=== PATIENT | female | born 1940 | race Two or more races ===

== ENCOUNTER → 2025-02-20 08:36 | Outpatient (CLI) | payer OTHER | END | disposition home or self-care (01) | LOC: NUCLEAR 08:36 | PROVIDERS: ATTEND Psychiatry & Neurology Clinical Neurophysiology | DX: G30.1 Alzheimer's disease with late onset (principal) | CPT/HCPCS: 78803; A9557 ==

== ENCOUNTER 2025-06-12 13:50 | Emergency (ER) | payer OTHER ==
[~2025-06-12] VITALS: Ht 160 cm; Wt 49.9 kg
[2025-06-12] MEDS ORDERED: EVISTA60 MG PO (14:14)
[2025-06-12] MEDS ORDERED: PROTONIX IV40 MG IV (14:14)
[2025-06-12] MEDS ORDERED: CARAFATE1 GM PO (14:14)
[2025-06-12] MEDS ORDERED: PEPCID AC20 MG (14:15)
[2025-06-12] MEDS ORDERED: ZOCOR20 MG PO (14:15)
[2025-06-12] MEDS ORDERED: ARICEPT10 MG (14:15)
[2025-06-12] MEDS ORDERED: SULFAMETHOXAZOL20 ML (14:16)
[2025-06-12] MEDS ORDERED: NAPROSYN125 MG/5 M (14:16)
[2025-06-12] MEDS ORDERED: ONDANSETRON HCL 2 MG/ML VIAL IV ONE (14:45)
[2025-06-12] MEDS ORDERED: FAMOTIDINE/PF 20 MG/2 ML VIAL IV ONE (14:45)
[2025-06-12] MEDS ORDERED: 0.9 % SODIUM CHLORIDE 500 ML IV ONE (14:45)
[2025-06-12] MEDS ORDERED: ONDANSETRON HCL 2 MG/ML VIAL ONE (15:14)
[2025-06-12] MEDS ORDERED: FAMOTIDINE/PF 20 MG/2 ML VIAL ONE (15:15)
[2025-06-12 15:19] LABS: BASO % 0.6 % (0.1-1.2); EOS # 0.01 (0.04-0.54); EOS % 0.1 % (0.7-7.0); LYMPH # 1.39 (1.18-3.74); LYMPH % 14.2 % (19.3-53.1); MEAN PLATELET VOLUME 9.00 fl (9.4-12.4); MONO # 0.21 (0.24-0.82); MONO % 2.1 % (4.7-12.5); NEUT # 8.09 (1.56-6.13); NEUT % 82.5 % (34.0-71.1); RED CELL DISTRIBUTION WIDTH 12.9 % (11.6-14.4)
[2025-06-12 15:36] LABS: COVID-19 AG NEGATIVE (NEGATIVE)
[2025-06-12 15:46] LABS: URINE APPEARANCE Clear; URINE BILIRRUBIN Negative (NEGATIVE); URINE BLOOD Negative; URINE COLOR Yellow; URINE GLUCOSE Negative (NEGATIVE); URINE KETONE Trace (NEGATIVE); URINE LEUKOCYTE Negative; URINE NITRATE Negative; URINE PROTEIN Negative (NEGATIVE); URINE UROBILINOGEN 0.2 E.U./dl
[2025-06-12 15:49] LABS: URINE BACTERIA 4.7 uL (0.0-1933); URINE EPITHELIAL CELLS 11.2 uL (0.0-38.8); URINE RBC 3.5 uL (0.0-20.8); URINE WBC 4.3 uL (0.0-23.2)
[2025-06-12 15:59] LABS: URINE CAST 1.02 uL (0.0-1.40)
[2025-06-12 15:59] LABS: ALT/SGPT 22.0 U/L (12-78); AST/SGOT 30.0 U/L (15-37); BILIRUBIN TOTAL 0.41 mg/dL (0.3-1.2); BUN CREA RATIO 15.0 (7.0-25.0); CREATININE SERUM 0.95 mg/dL (0.55-1.02); GFR 56.04; GLOBULINA 3.6 G/DL (2.4-3.5); GLUCOSE FASTING 120.0 mg/dL (65-100); OSMOLALITY SERUM 285.0 MOSM/KG (275-295)
[2025-06-12] MEDS ORDERED: PEPCID AC20 MG PO (16:57)
[2025-06-12 17:55] VITALS: BP 137/87; O2SAT 98
== END 2025-06-12 17:56 ==
LOC: ER 13:50
PROVIDERS: General Practice
DX: K29.70 Gastritis, unspecified, without bleeding (principal); R11.2 Nausea with vomiting, unspecified; R11.10 Vomiting, unspecified; Z20.822 Contact with and (suspected) exposure to COVID-19
CPT/HCPCS: 36415; 96365; 96366; 99282; J2405; J3490; J7042